=== PATIENT | female | born 1950 | race Caucasian/White ===

== ENCOUNTER 2017-03-31 20:25 | Emergency (ER) | payer OTHER ==
[~2017-03-31] VITALS: Ht 157.5 cm; Wt 79.7 kg
[~2017-03-31 20:25] MED LIST: ALLO300T2 PO; CYAN100020 PO; CZRUNK PO; GLC500 PO; IBUP-1459 PO; LORA-741 PO; SIMV40TA2 PO; VENL150C56 PO
[2017-03-31 20:34] VITALS: TEMP 37.5; Ht 157.5 cm; Wt 79.7 kg
[2017-03-31] MEDS ORDERED: LIDOCAINE/EPINEPH/TETRACAINE 1 EA SYR EXT STA (20:50)
[2017-03-31] MEDS ORDERED: CEFTRIAXONE SOD INJ 1 GM ADDVIAL IV STA (20:50)
--- NOTE | 2017-03-31 20:56 | EMERGENCY ROOM VISIT NOTE ---
History Report prepared by Arden: Jv Gloria Under the Supervision of: Dr. Jay Mora M.D. First contact with patient: 20:40 Chief Complaint: WOUND INFECTION Stated Complaint: ABSCESS OR OPEN AREA INFECTED Nursing Triage Summary: Patient has a quarter sized, "zit like bump" on the back of her neck that she has had for approx. a week. Patient attempted to mackenzie it at home with a needle and now patient's friend is concerned that it's infected as it's been draining yellow fluid. Patient is also a diabetic. History of Present Illness The patient is a 66 year old female who presents to the Emergency Room with complaints of a worsening wound infection on the back of her head for the past week. The patient's friend states that the patient has had an abscess for a week , and tonight she poked it with a needle, and there was some yellow pus. The patient denies any fever, numbness, nausea, vomiting, chest pain, or abdominal pain. The patient additionally is a little bit disoriented, and she is diabetic. Source of History: patient Onset: a week ago Position: head Quality: other (infectoin) Timing: worsening Associated Symptoms: No fevers, No chest pain, No nausea, No vomiting, No abdominal pain, No numbness Review of Systems See HPI for pertinent positives & negatives. A total of 10 systems reviewed and were otherwise negative. Past Medical & Surgical Medical Problems: (1) Calculus Of Kidney (2) Depressive Disorder Nec (3) Diab Trinidad Wo Compl, Type Ii Or Unspec Type, Not Uncntrld (4) Diabetes (5) Hyperlipidemia Nec/Nos (6) Hypertension (7) Hypertension Nos Old medical records were reviewed. Nurse's notes were reviewed and I agree with. Family History Cancer Diabetes mellitus Hypertension Kidney disease Social History Smoking Status: Never Smoker Alcohol Use: none Marital Status: single Housing Status: lives with family Occupation Status: unemployed Current/Historical Medications Scheduled Acetaminophen (Tylenol), 1,000 MG PO DAILY Allopurinol (Zyloprim), 1 TAB PO DAILY Amoxicillin & Pot Clavulanate (Augmentin 875-125 mg), 875 MG PO BID Cyanocobalamin (Vitamin B12), 1,000 MCG PO DAILY Losartan Potassium (Cozaar Unknown Dose), 100 MG PO DAILY Metformin Hcl (Glucophage), 1,000 MG PO BID Mupirocin (Bactroban 2% Oint), 1 APPLN EXT TID Simvastatin (Zocor), 40 MG PO QPM Venlafaxine Hcl (Effexor Extended Rel), 150 MG PO DAILY Scheduled PRN Lorazepam (Ativan), 0.5 MG PO HS PRN for Sleep Allergies Coded Allergies: No Known Allergies (Unverified , 03/31/17) Physical Exam Vital Signs Date Time Temp Pulse Resp B/P (MAP) Pulse Ox O2 Delivery O2 Flow Rate FiO2 03/31/17 22:30 98 17 140/79 94 Room Air 03/31/17 20:34 37.5 97 18 142/91 93 Room Air Physical Exam General: Non-ill appearing older female in no acute distress. HEENT: Posterior scalp near the neck had several pustules. No draining pus at this point. No overt cellulitis. Normal cephalic atraumatic. Pupils are equal round and reactive to light. Extraocular movements are intact. Oropharynx is pink with moist mucous membranes. No swelling of the mouth lips or tongue. Neck: Supple with a midline trachea. No meningeal signs or stiffness, no JVD or bruits. No Stridor. Chest: Clear to auscultation bilaterally. No wheezes or rhonchi. No increased work of breathing. Heart: regular rate and rhythm. Abdomen: Soft nontender, nondistended without rebound guarding or rigidity. Extremities: No cyanosis clubbing or edema. No calf tenderness or assymetry Spine/Back. Non tender to palpation. No CVA tenderness Skin: Good turgor without rashes. Neurologic exam: Cranial nerves two through 12 are intact. Motor and sensation are intact and symmetrical throughout. Medical Decision & Procedures Laboratory Results 03/31/17 21:05 Red Blood Count 3.80, Mean Corpuscular Volume 96.3, Mean Corpuscular Hemoglobin 31.3, Mean Corpuscular Hemoglobin Concent 32.5, Mean Platelet Volume 9.2, Neutrophils (%) (Auto) 72.3, Lymphocytes (%) (Auto) 19.1, Monocytes (%) (Auto) 5.8, Eosinophils (%) (Auto) 2.5, Basophils (%) (Auto) 0.1, Neutrophils # (Auto) 5.81, Lymphocytes # (Auto) 1.54, Monocytes # (Auto) 0.47, Eosinophils # (Auto) 0.20, Basophils # (Auto) 0.01 03/31/17 21:05 Test 03/31/17 20:39 03/31/17 21:05 Bedside Glucose 157 mg/dl (70-90) White Blood Count 8.05 K/uL (4.8-10.8) Red Blood Count 3.80 M/uL (4.2-5.4) Hemoglobin 11.9 g/dL (12.0-16.0) Hematocrit 36.6 % (37-47) Mean Corpuscular Volume 96.3 fL (80-100) Mean Corpuscular Hemoglobin 31.3 pg (25-34) Mean Corpuscular Hemoglobin Concent 32.5 g/dl (32-36) Platelet Count 324 K/uL (130-400) Mean Platelet Volume 9.2 fL (7.4-10.4) Neutrophils (%) (Auto) 72.3 % Lymphocytes (%) (Auto) 19.1 % Monocytes (%) (Auto) 5.8 % Eosinophils (%) (Auto) 2.5 % Basophils (%) (Auto) 0.1 % Neutrophils # (Auto) 5.81 K/uL (1.4-6.5) Lymphocytes # (Auto) 1.54 K/uL (1.2-3.4) Monocytes # (Auto) 0.47 K/uL (0.11-0.59) Eosinophils # (Auto) 0.20 K/uL (0-0.5) Basophils # (Auto) 0.01 K/uL (0-0.2) RDW Standard Deviation 51.6 fL (36.4-46.3) RDW Coefficient of Variation 14.6 % (11.5-14.5) Immature Granulocyte % (Auto) 0.2 % Immature Granulocyte # (Auto) 0.02 K/uL (0.00-0.02) Prothrombin Time 42.1 SECONDS (9.0-12.0) Prothromb Time International Ratio 3.7 (0.9-1.1) Activated Partial Thromboplast Time 41.2 SECONDS (21.0-31.0) Partial Thromboplastin Ratio 1.6 Anion Gap 6.0 mmol/L (3-11) Est Creatinine Clear Calc Drug Dose 29.7 ml/min Estimated GFR () 33.2 Estimated GFR (Non- 28.6 BUN/Creatinine Ratio 10.8 (10-20) Calcium Level 9.1 mg/dl (8.5-10.1) Laboratory studies as stated above per my review. Medications Administered Medications (Trade) Dose Ordered Sig/Georges Route Start Time Stop Time Status Last Admin Dose Admin Ceftriaxone Sodium (Rocephin Inj) 1 gm NOW STAT IV 03/31/17 20:50 03/31/17 20:52 DC 03/31/17 21:29 1 GM Tetracaine/ Epinephrine/ Lidocaine (L.e.t. Gel 4%/ 1:100/0.5%) 1 ea NOW STAT EXT 03/31/17 20:50 03/31/17 20:52 DC 03/31/17 21:29 1 EA ED Course 2039: Past medical records reviewed. The patient was evaluated in room B6, and a complete history and physical examination were performed. 2049: LET Gel 4%/ 1:100/ 0.5% 1ea EXT, Rocephin Inj 1gm IV 2128: After getting numbing cream, I was able to examine her better. There was a large indurated area. The patient states that she is on coumadin. I used an 18 gauge needle to unroof the pustules, and I got some pus out. Medical Decision Differentials include, but are not limited to; abscess, folliculitis, cellulitis , electrolyte or metabolic abnormality. This patient comes in as described above. She has an area in her posterior scalp where she has several small pustules. There may be an abscess there as well. She has tried to pop it at home. Let gel was applied. Blood work was obtained and she was given Rocephin 1 g IV. She was numbed with let gel. She is much easier to examine the area is fairly indurated and in light of this I did do a CT . I did gently unroofed this area a little bit, I did get a small amount of pus. She also tells me that she is on Coumadin which was not listed in her med list and light of this I also did obtain coags. Her INR was elevated at 3.7. CAT scan does not reveal any identifiable abscess but more of a phlegmon. Based on this and the fact that she has an elevated INR, I do think there is nothing to drain at this point but it certainly could develop. She looks well is afebrile is a normal white count. She has some moderate renal insufficiency which is slightly worse than her previous but it's been quite some time. She will use Augmentin 875 mg twice a day. She was also given Bactroban ointment will use this 3 times a day. I chose this because Bactroban because of her INR 3.7 I do not think Bactrim would be a good choice. She does have a folliculitis/cellulitis and I do think he needs close follow- up on Sunday for recheck. I also encouraged to return over the for recheck if: fever chills, worsening of symptoms, any new problems or concerns and to avoid picking at it. Follow up with her doctor Sunday for recheck.. Impression Primary Impression: Cellulitis Additional Impression: Folliculitis Scribe Attestation The scribe's documentation has been prepared under my direction and personally reviewed by me in its entirety. I confirm that the note above accurately reflects all work, treatment, procedures, and medical decision making performed by me. Departure Information Prescriptions Mupirocin (Bactroban 2% Oint) 66 Appln/22 Gm Oint 1 APPLN EXT TID for 10 Days, #1 TUBE Prov: Jay oMra M.D. 03/31/17 Amoxicillin & Pot Clavulanate (Augmentin 875-125 mg) 1 Tab Tab 875 MG PO BID for 10 Days, #20 TAB Prov: Jay Mora M.D. 03/31/17 Referrals No Doctor, Assigned (PCP) Patient Instructions My [facility] Problem Qualifiers
[2017-03-31] MEDS ORDERED: XYLOCAINE 1%/SOD BICARB 20 ML VIAL INFIL ONE (21:00)
[2017-03-31] MEDS ORDERED: ACET-1256 PO (21:02)
[2017-03-31] MEDS ORDERED: METF-384 PO (21:05)
[2017-03-31 21:16] LABS: BASO % 0.1 %; BASO ABS # 0.01 K/uL (0-0.2); COMPLETE YES; EOS % 2.5 %; HEMATOCRIT 36.6 % (37-47); IG% 0.2 %; LYMPH % 19.1 %; LYMPH ABS # 1.54 K/uL (1.2-3.4); MEAN CELL VOLUME 96.3 fL (80-100); MEAN CORPUSCULAR HEMOGLOBIN 31.3 pg (25-34); MEAN CORPUSCULAR HGB CONC 32.5 g/dl (32-36); MEAN PLATELET VOLUME 9.2 fL (7.4-10.4); MONO % 5.8 %; NEUT % 72.3 %; PLATELET COUNT 324 K/uL (130-400); WHITE BLOOD COUNT 8.05 K/uL (4.8-10.8)
[2017-03-31 21:34] LABS: BUN/CREATININE RATIO 10.8 (10-20); CALCIUM 9.1 mg/dl (8.5-10.1); CREATININE 1.8 mg/dl (0.60-1.20); POTASSIUM 3.5 mmol/L (3.5-5.1)
[2017-03-31 22:03] LABS: PARTIAL THROMBOPLASTIN RATIO 1.6; PROTHROMBIN TIME (PATIENT) 42.1 SECONDS (9.0-12.0)
[2017-03-31 22:32] LABS: INR 3.7 (0.9-1.1)
--- NOTE | 2017-03-31 22:54 | DIAGNOSTIC IMAGING REPORT ---
HEAD WITHOUT CONTRAST (CT) CT DOSE: 537.48 mGy.cm HISTORY: Abscess eval for abbess, post scalp TECHNIQUE: Multiaxial CT images of the head were performed without the use of intravenous contrast. Comparison: None. Findings: The paranasal sinuses and mastoid air cells are clear. The calvarium and skull base are intact. The ventricles and sulci are within normal limits. There is no mass, hematoma, midline shift, or acute infarct. Evidence for cellulitis of the posterior occipital scalp. No abnormal periosteal or bony reaction. Possible 1 cm phlegmon within the subcutaneous tissues. No significant drainable abscess. Impression: 1. Negative CT of the brain. 2. Posterior scalp cellulitis with a 1 cm probable phlegmon in the subcutaneous fat 3. No evidence for drainable abscess or collection The above report was generated using voice recognition software. It may contain grammatical, syntax or spelling errors. Electronically signed by: Santino Van M.D. 03/31/2017 10:53 PM Dictated Date/Time: 03/31/2017 10:51 PM
[2017-03-31] MEDS ORDERED: MUPIROCIN 2% OINT 22 GM TUBE EXT STA (23:15)
[2017-03-31] MEDS ORDERED: AMOX875T PO (23:15)
[2017-03-31] MEDS ORDERED: BCTROWC EXT (23:15)
[2017-03-31] MEDS ORDERED: AMOXICIL/CLAVU 875MG HOME PACK PO ONE (23:30)
[2017-03-31 23:40] VITALS: BP 143/79; PULSE 99; O2SAT 97
== END 2017-03-31 23:38 | disposition home or self-care (01) ==
LOC: C.EDB 20:26
DX: L03.811 Cellulitis of head [any part, except face] (principal); L73.9 Follicular disorder, unspecified; E11.9 Type 2 diabetes mellitus without complications; Z87.442 Personal history of urinary calculi; F32.9 Major depressive disorder, single episode, unspecified; E78.5 Hyperlipidemia, unspecified; I10 Essential (primary) hypertension; Z80.9 Family history of malignant neoplasm, unspecified; Z83.3 Family history of diabetes mellitus; Z82.49 Family history of ischemic heart disease and other diseases of the circulatory system; Z84.1 Family history of disorders of kidney and ureter; Z79.899 Other long term (current) drug therapy; Z79.01 Long term (current) use of anticoagulants

== ENCOUNTER 2025-07-29 13:58 | Inpatient (IN) ==
--- NOTE | 2025-07-29 14:08 | Emergency Department Note ---
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 patella. IMPRESSION: No patella fracture seen. ACT 112: Negative or not required by law. Electronically signed by: Joseph Melendez M.D. 07/29/2025 4:03 PM Discharge Plan Visit Data Chief Complaint: Fall Stated Complaint: FALL ED Provider: Lucas Zhu Discharge Problem: Fall, Multiple myeloma, UTI (urinary tract infection), Fracture of right fifth rib, T12 compression fracture Patient Disposition: Admitted As Inpatient Condition: Good Discharge Instructions Interventions: ED Discharge Assessment Last Done: 07/29/25 20:45 Discharge Problem: Fall Qualifiers: Encounter type: initial encounter Qualified Code(s): W19.XXXA - Unspecified fall, initial encounter Multiple myeloma Qualifiers: Multiple myeloma remission status: not in remission Qualified Code(s): C90.00 - Multiple myeloma not having achieved remission UTI (urinary tract infection) Qualifiers: Urinary tract infection type: acute cystitis Hematuria presence: without hematuria Qualified Code(s): N30.00 - Acute cystitis without hematuria T12 compression fracture Qualifiers: Encounter type: initial encounter Qualified Code(s): S22.080A - Wedge compression fracture of T11-T12 vertebra, initial encounter for closed fracture
[2025-07-29] MEDS: OPTIRAY 320 100ml IV ONE (14:49)
[2025-07-29 14:53] LABS: Hematocrit (blood only) 27.7 % (37.0-47.0); Hemoglobin 9.1 g/dL (12.0-16.0); Immature Granulocytes # (auto) 0.01 K/uL (0.01-0.20); Immature Granulocytes % (auto) 0.3 %; Mean Corpuscular Hemoglobin 33.1 pg (25.0-34.0); Mean Corpuscular Volume 100.7 fL (80.0-100.0); Platelet Count 174 K/uL (130-400); RDW Standard Deviation 81.5 fL (36.4-46.3); Red Blood Count 2.75 M/uL (4.20-5.40); White Blood Count 2.96 K/ul (4.8-10.8)
[2025-07-29 15:03] LABS: Appearance Urine Clear (Clear); Bacteria Urine Automated 2+ (None Seen); Epithelial Cell Urine Auto 0-2 /hpf (0-2); Glucose Urine UA Negative (Negative); RBC Urine Automated 0-2 /hpf (0-2)
[2025-07-29] MEDS: ACETAMINOPHEN 1,000 MG/100 ML VIAL IV STA (15:04)
[2025-07-29 15:11] LABS: Alanine Aminotransferase 19.0 U/L (7-52); Albumin Globulin Ratio 0.8 (0.9-2); Albumin Level 3.5 gm/dl (3.4-5.0); Alkaline Phosphatase 137.0 U/L (34-104); Anion Gap 7.0 (3-11); Bilirubin,Total 0.7 mg/dl (0.2-1.0); Blood Urea Nitrogen 47.0 mg/dl (6-23); Calcium 9.6 mg/dl (8.6-10.3); Carbon Dioxide 26.0 mmol/L (21-32); Chloride 104.0 mmol/L (98-107); Creatinine Clr Calc Pharmacy 33.4 ml/min; Globulin 4.6 gm/dl (2.5-4.0); Glucose 164.0 mg/dl (70-99(Fasting)); Lipase 9.0 U/L (11-82); Potassium 4.2 mmol/L (3.5-5.1); Sodium 137.0 mmol/L (136-145); Total Protein 8.1 gm/dl (6.0-8.3)
[2025-07-29 15:22] LABS: Anisocytosis Present; Dohle Bodies 1+; Ovalocytes 1+; Polychromasia 1+
[2025-07-29] MEDS: SODIUM CHLORIDE 0.9% 500 ML IV ONE (15:27)
[2025-07-29] MEDS: LIDOCAINE 5% 1 PATCH TD STA (15:28)
--- NOTE | 2025-07-29 15:29 | CT Scan Report ---
CT SCAN OF THE BRAIN WITHOUT IV CONTRAST CLINICAL HISTORY: Fall. Dizziness. Multiple myeloma. COMPARISON STUDY: Head CT March 31, 2017. TECHNIQUE: Unenhanced axial CT scan of the brain was performed from the vertex to the skull base. A dose lowering technique was utilized adhering to the principles of ALARA. FINDINGS: Brain parenchyma: No acute intracranial hemorrhage, midline shift or mass effect is present. Rhoades-whi te matter differentiation is preserved. There are no extra-axial fluid collections. There are no find ings to suggest acute dural sinus thrombosis or acute territorial infarct. White matter hypodensities suggest small vessel disease. Ventricles, sulci, cisterns: There is no hydrocephalus. The basal cisterns are patent. Calvarium: There are no calvarial fractures. Numerous lytic calvarial lesions are similar to PET/CT o f June 24, 2025. Sinuses and mastoids: The visualized paranasal sinuses are clear. The mastoid air cells are well pneu matized. Orbits: The bony orbits are grossly intact. IMPRESSION: 1. No acute intracranial findings. 2. No calvarial fractures. 3. No significant change in numerous lytic calvarial lesions since PET/CT of June 24, 2025 consiste nt with known history of multiple myeloma. ACT 112: Negative or not required by law. Electronically signed by: [place] M.D. 07/29/2025 3:28 PM
[2025-07-29 15:30] LABS: INR 1.1 (0.9-1.1); Partial Thromboplastin Time 23 Seconds (21-31); Prothrombin Time 11.9 Seconds (9.0-12.0)
--- NOTE | 2025-07-29 15:37 | CT Scan Report ---
CT thoracic spine w con HISTORY: 74 years-old Female trauma acute mid back pain status post trauma. History of multiple myel malou with lytic disease. COMPARISON: CT chest, abdomen and pelvis of same day, PET CT 06/24/2025, CT abdomen and pelvis 05/05/20 25 TECHNIQUE: Multiple axial CT images of the thoracic spine were obtained with IV contrast. A dose lowe ring technique was used consistent with the principals of ALA. FINDINGS: CT chest, abdomen and pelvis dictated separately. Dilation with type B dissection of the descending t horacic aorta redemonstrated. There is no paravertebral edema. Small hypodense thyroid nodules. Parti ally imaged dependent bibasilar consolidation. There is approximately 20% compression deformity of T1 2 without retropulsion, new from 05/05/2025. Small scattered lytic lesions again noted throughout the thoracic spine and imaged ribs. No subluxation. No high-grade central canal or neural foraminal narro wing. Midthoracic dextroscoliosis of approximately 30 degrees. IMPRESSION: 1. Mild acute versus subacute T12 compression deformity without retropulsion, new from 05/05/2025. 2. Small lytic lesions again noted compatible with the patient's clinical history of multiple myeloma . 3. Mid thoracic dextroscoliosis. 4. 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 ACT 112: Negative or not required by law. The above report was generated using voice recognition software. It may contain grammatical, syntax o r spelling errors. Electronically signed by: Geoffrey Fernandes M.D. 07/29/2025 3:34 PM
--- NOTE | 2025-07-29 15:39 | XRay Report ---
XR chest 1V portable CLINICAL HISTORY: Trauma COMPARISON STUDY: 10/05/2015 FINDINGS: There is progressive cardiomegaly without pulmonary vascular congestion. There is opacity a t the left base with blunting of the left costophrenic angle. No other consolidation or pleural effus ion seen. No pneumothorax. There is a rounded density overlying the left upper lung which may be asso ciated with the first rib. There are scattered small osseous lucencies suggesting multiple myeloma. IMPRESSION: 1. Consolidation at the left lung base with possible small left pleural effusion. No pneumothorax see n. 2. Findings suggesting multiple myeloma with possible mass at the left first rib. ACT 112: Negative or not required by law. Electronically signed by: Joseph Melendez M.D. 07/29/2025 3:38 PM
--- NOTE | 2025-07-29 15:41 | CT Scan Report ---
CT SCAN OF THE CERVICAL SPINE CLINICAL HISTORY: Fall. Multiple myeloma. COMPARISON STUDY: PET/CT June 24, 2025. TECHNIQUE: CT scan of the cervical spine is performed from the skull base to the upper thoracic spine . Images are reviewed in the axial, sagittal, and coronal planes. IV contrast was not administered fo r this examination. A dose lowering technique was utilized adhering to the principles of ALARA. FINDINGS: Reversal of the cervical lordosis is unchanged since PET/CT of June 24, 2025. No acute ce rvical spine fractures are identified. Extensive lytic skeletal lesions are again noted, as shown on that exam. Soft tissue lesions within the anterior bilateral first ribs are better depicted on the ch est CT which will be reported separately. There is severe multilevel facet arthrosis and moderate deg enerative disc disease within the cervical spine. Extensive degenerative changes at the C1-C2 articul ation are again noted. There is no prevertebral edema. IMPRESSION: 1. No acute cervical spine fracture or subluxation. 2. Redemonstration of innumerable lytic skeletal lesions consistent with known multiple myeloma, as s hown on PET/CT of June 24, 2025. 3. Severe multilevel facet arthrosis and moderate degenerative disc disease within the cervical spine . ACT 112: Negative or not required by law. Electronically signed by: [place]o [place] M.D. 07/29/2025 3:40 PM
--- NOTE | 2025-07-29 15:46 | CT Scan Report ---
CT lumbar spine w con CLINICAL HISTORY: Trauma COMPARISON STUDY: 05/05/2025 FINDINGS: There is osteopenia. Stable appearance of the osseous structures suggesting multiple myelom a. There is severe diffuse degenerative disc disease, progressive. Stable grade 1 anterolisthesis of L4 on 5. There is mild mildly progressive height loss at the T12 vertebral body. No acute fractures s een at the lumbar spine. There is moderate bilateral neural foraminal narrowing at L4-5 and L5-S1. IMPRESSION: 1. Mild mildly progressive height loss at the T12 vertebral body compared with 05/05/2025. This does n ot have definitely acute features and is indeterminate as to chronicity. 2. No acute fracture seen of the lumbar spine. 3. Appearance of the osseous structures suggests multiple myeloma. ACT 112: Negative or not required by law. Electronically signed by: Joseph Melendez M.D. 07/29/2025 3:44 PM
--- NOTE | 2025-07-29 15:51 | CT Scan Report ---
CHEST CT WITH CONTRAST CT DOSE: 4005 HISTORY: Trauma TECHNIQUE: Multiaxial CT images of the chest were performed following the IV administration of 90 cc of Optiray. A dose lowering technique was utilized adhering to the principles of ALARA. COMPARISON STUDY: 05/05/2025. FINDINGS: There is interval moderate sized area of consolidation at the left lung base. There is an i nterval small area of dependent consolidation right lung base. No pleural effusion or pneumothorax. T here is a stable aortic dissection at the descending thoracic aorta. No mediastinal hematoma. There i s a trace pericardial effusion. There are scattered osseous lucencies with morphology suggesting mult iple myeloma. 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 There is an acute nondisplaced fracture laterally at the right fifth rib. There is an old fracture at the left seventh rib. There is interval minimal height loss at the T12 vertebral body. No other acute fracture seen. IMPRESSION: 1. Acute fracture at the right fifth rib with no pneumothorax. Interval minimal height loss at the T1 2 vertebral body of uncertain chronicity. 2. Interval lung base consolidation, pneumonia versus atelectasis. 3. No other acute injuries seen. 4. Stable descending thoracic aortic dissection. 5. Otherwise as described. ACT 112: Negative or not required by law. Electronically signed by: Joseph Melendez M.D. 07/29/2025 3:50 PM
--- NOTE | 2025-07-29 15:58 | CT Scan Report ---
ABDOMEN AND PELVIS CT WITH IV CONTRAST CT DOSE: 4005.42 mGy.cm HISTORY: Trauma TECHNIQUE: Multiaxial CT images of the abdomen and pelvis were performed following the IV administrat ion of 90 cc of Optiray, A dose lowering technique was utilized adhering to the principles of ALARA. COMPARISON STUDY: 05/05/2025 FINDINGS: ABDOMEN: Gallbladder is surgically absent. There are splenic calcifications consistent with prior gra nulomatous disease. Liver, spleen, pancreas, kidneys, and adrenal glands show no evidence of acute in jury. Stable bilateral renal cysts. No hydronephrosis. The descending aortic dissection continues jus t beyond the hiatus, stable. No evidence of abdominal aortic injury. Pelvis: Stable calcified uterine fibroids. Urinary bladder is decompressed. There is a large amount o f retained stool. No bowel inflammation or obstruction seen. Stable diastases of the rectus. Stable s mall peripherally calcified mass anterior lower pelvis. No free fluid or free air. Osseous structures: There are osseous findings suggesting multiple myeloma. Stable hardware at the pr oximal femurs. Interval minimal height loss at the T12 vertebral body examination of uncertain chroni city. No acute fracture seen at the visualized osseous structures otherwise. IMPRESSION: No acute injury seen at the abdomen or pelvis. Otherwise as described. ACT 112: Negative or not required by law. The above report was generated using voice recognition software. It may contain grammatical, syntax o r spelling errors. Electronically signed by: Joseph Melendez M.D. 07/29/2025 3:57 PM
--- NOTE | 2025-07-29 16:04 | XRay Report ---
XR femur RT 2V routine CLINICAL HISTORY: fall, pain; prior path frx COMPARISON: Right femur radiographs May 12, 2025. FINDINGS: Right femoral internal fixation hardware is intact. There is a healing distal diaphyseal r ight femoral pathologic fracture with extensive callus formation. No acute right femoral fracture is present. Extensive lytic lesions within the right femur are again noted. IMPRESSION: 1. No acute right femoral fracture. 2. Healing distal diaphyseal right femoral pathologic fracture with extensive callus formation. Hardw are intact. 3. Redemonstration of extensive lytic lesions consistent with multiple myeloma. ACT 112: Negative or not required by law. Electronically signed by: [place] M.D. 07/29/2025 4:02 PM
--- NOTE | 2025-07-29 16:04 | XRay Report ---
XR knee RT 1 or 2V routine CLINICAL HISTORY: fall, pain; h/o multiple myelom COMPARISON: None FINDINGS: Single sunrise view of the knee was obtained. No fracture seen at the patella. IMPRESSION: No patella fracture seen. ACT 112: Negative or not required by law. Electronically signed by: Joseph Melendez M.D. 07/29/2025 4:03 PM
--- NOTE | 2025-07-29 16:23 | History & Physical Report ---
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 chest, non tender abd exam, Heart and lung exam fairly wnl. no ble edema. rest of the exam as above. Total time spent independently: 28 min. I have seen and examined the patient and have discussed the case with the provider above. I agree with the assessment and plan as stated.
[2025-07-29] MEDS: cefTRIAXone SODIUM 2,000 MG/50 ML BAG IV STA (16:24)
[2025-07-29] MEDS ORDERED: HYDROmorphone INJ 0.5 MG/0.5 ML SYR IV PRN (17:40)
[2025-07-29] MEDS: SODIUM CHLORIDE 0.9% 1,000 ML IV SCH (18:36)
[2025-07-29] MEDS ORDERED: ACETAMINOPHEN 325 MG TAB PO PRN (21:51)
[2025-07-29] MEDS ORDERED: PROCHLORPERAZINE MALEATE 10 MG TAB PO PRN (21:51)
[2025-07-29] MEDS ORDERED: ONDANSETRON INJ 2 MG/ML 2 ML VIAL IV PRN (21:51)
[2025-07-29] MEDS ORDERED: LORazepam 1 MG TAB PO PRN (21:51)
[2025-07-29] MEDS: ACYCLOVIR 400 MG TAB PO SCH (22:06)
[2025-07-29] MEDS: REMOVE LIDODERM PATCH SCH (22:06)
[2025-07-29] MEDS: APIXABAN 5 MG TABLET PO SCH (22:07)
[2025-07-29] MEDS: CALCIUM CARBONATE 1250MG TAB PO SCH (22:07)
[2025-07-30 06:17] LABS: Hematocrit (blood only) 22.6 % (37.0-47.0); Hemoglobin 7.4 g/dL (12.0-16.0); Immature Granulocytes # (auto) 0.02 K/uL (0.01-0.20); Immature Granulocytes % (auto) 0.9 %; Mean Corpuscular Hemoglobin 33.0 pg (25.0-34.0); Mean Corpuscular Volume 100.9 fL (80.0-100.0); Platelet Count 154 K/uL (130-400); RDW Standard Deviation 82.2 fL (36.4-46.3); Red Blood Count 2.24 M/uL (4.20-5.40); White Blood Count 2.16 K/ul (4.8-10.8)
[2025-07-30 06:40] LABS: Alanine Aminotransferase 14.0 U/L (7-52); Albumin Globulin Ratio 0.8 (0.9-2); Albumin Level 3.2 gm/dl (3.4-5.0); Alkaline Phosphatase 106.0 U/L (34-104); Anion Gap 6.0 (3-11); Bilirubin,Total 0.4 mg/dl (0.2-1.0); Blood Urea Nitrogen 34.0 mg/dl (6-23); Calcium 8.5 mg/dl (8.6-10.3); Carbon Dioxide 25.0 mmol/L (21-32); Chloride 106.0 mmol/L (98-107); Creatinine Clr Calc Pharmacy 38.0 ml/min; Globulin 3.9 gm/dl (2.5-4.0); Glucose 179.0 mg/dl (70-99(Fasting)); Magnesium 1.7 mg/dl (1.7-2.4); Potassium 3.8 mmol/L (3.5-5.1); Sodium 137.0 mmol/L (136-145); Total Protein 7.1 gm/dl (6.0-8.3)
[2025-07-30 06:48] LABS: Anisocytosis Present; Ovalocytes 1+
[2025-07-30 08:24] LABS: Hematocrit (blood only) 23.6 % (37.0-47.0); Hemoglobin 7.8 g/dL (12.0-16.0); Immature Granulocytes # (auto) 0.02 K/uL (0.01-0.20); Immature Granulocytes % (auto) 1.0 %; Mean Corpuscular Hemoglobin 33.1 pg (25.0-34.0); Mean Corpuscular Volume 100.0 fL (80.0-100.0); Platelet Count 150 K/uL (130-400); RDW Standard Deviation 82.2 fL (36.4-46.3); Red Blood Count 2.36 M/uL (4.20-5.40); White Blood Count 1.99 K/ul (4.8-10.8)
[2025-07-30] MEDS: ACETAMINOPHEN 500 MG TAB PO SCH (08:28)
[2025-07-30] MEDS: LORazepam 1 MG TAB PO SCH (08:28)
[2025-07-30] MEDS: ATORVASTATIN 40 MG TAB PO SCH (08:29)
[2025-07-30] MEDS: CITALOPRAM 40 MG TAB PO SCH (08:29)
[2025-07-30] MEDS: CYANOCOBALAMIN (B-12) 500 MCG TABLET PO SCH (08:30)
[2025-07-30] MEDS: FENOFIBRATE NANOCRYSTALLIZED 48 MG TABLET PO SCH (08:36)
[2025-07-30 08:54] LABS: Acanthocytes 1+; Anisocytosis Present; Dohle Bodies 1+; Ovalocytes 1+; Tear Drop Cells 1+; Toxic Vacuolation 1+
--- NOTE | 2025-07-30 09:00 | Radiation OncologyConsultation ---
Date of Consultation July 30, 2025 Assessment & Plan (1) Multiple myeloma: Multiple myeloma remission status: not in remission Qualified Code(s): C90.00 - Multiple myeloma not having achieved remission Plan ATTENDING ADDENDUM Assessment: Ms. Madrid is a 74-year-old female who is currently under treatment for radiation therapy for multiple myeloma. The patient has been admitted due to a fall with rib fractures. We have been asked to evaluate the patient regarding continuing radiation therapy in the inpatient setting. Plan: 1. Continue radiation therapy in the inpatient setting. The case was discussed with the midlevel provider. 2. All other care as per primary medical team. 3. Please call us with any further questions or concerns. History of Present Illness Reason for Consultation: Currently undergoing radiation therapy to the bilateral femurs for multiple my eloma Requesting Physician: Clifford York MD Attending Physician: Clifford York MD History of Present Illness 04/30/2025. Primary care visit. Burning pain in right leg when walking. Studies were ordered. Started gabapentin. 05/04/2025. Skeletal survey. Extensive osseous metastatic disease consistent with multiple myeloma. 05/04/2025. Patient was hospitalized due to elevated blood protein and abnormal femur x-ray. Workup for plasma cell dyscrasia was started. Patient will need PET/CT. 05/04/2025. CT of the chest, abdomen and pelvis. 1. There is evidence of extensive/diffuse multifocal osteolytic bony metastatic disease. The appearance favors multiple myeloma. 2. There are lobular soft tissue lesions associated with bilateral first rib lesions which may represent plasmacytomas. 3. Subacute-appearing bilateral rib fractures may be pathologic. No additional pathologic fracture is clearly seen. 4. 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 05/04/2025. X-ray of right femur. Mixed lytic and sclerotic expansile lesion involving the entire right femoral diaphysis extending from the greater trochanter to the distal diaphysis of the femoral diaphysis. There are erosive changes and expansion of the cortex distally differential diagnostic. Possibilities include multiple myeloma versus metastatic disease. 05/04/2025. CT of right femur. 1. Innumerable lytic lesions within the right femur and visualized portions of the right pelvis suggestive of multiple myeloma. Metastatic disease is within the differential but considered less likely. 2. Associated 7.1 x 3.8 x 2.9 cm enhancing intramedullary lesion within the distal diaphysis of the right femur with soft tissue extension and extensive cortical erosion also suggestive of myeloma. No pathologic fracture. However, this lesion places the patient at risk for development of a pathologic fracture. 05/04/2025. X-ray of right tibia and fibula. No acute osseous pathology. 05/05/2025. Medical oncology consultation (Dr. Powers). Workup for plasma cell dyscrasia. Complete bone marrow. 05/06/2025. Bone marrow biopsy peripheral blood. Peripheral blood, bone marrow aspiration, core biopsy and clot section: Monoclonal plasma cell population (10%) Mildly hypercellular marrow for age (50%) and trilineage hematopoiesis Karyotype: Del 6 q. and hyperdiplody. 05/07/2025. Hospital discharge. Complete workup as outpatient. 05/12/2025. Emergency room evaluation due to pain in the right leg. 2 sisters were helping her to get out of the bathtub whenever she felt a pop in her right lower thigh region. She was brought to the emergency room. 05/12/2025. X-ray of right femur. Moderately displaced pathologic fracture of the distal femoral shaft with foreshortening and angulation. 05/13/2025. CT of lower extremity right. 1. Displaced pathologic distal right femur metaphysis fracture. 2. Diffuse infiltrative bony lesion involving the femur, iliac crest, and sacrum compatible with metastatic disease. 05/13/2025. X-ray of right femur. 1. Infiltrative bony lesion is present compatible with metastatic disease. There is pathologic fracture acrossthe distal metaphyses which is displaced posteriorly by half a with of the cortical bone. 2. Calcified pelvic lesion measures 9.8 by 6.3 cm. Another calcified lesion measures 5.1 by 6.2 cm. This Could reason for present uterine fibroids. 05/13/2025. X-ray bilateral hips. 1. Infiltrative bony lesion is present compatible with metastatic disease. There is pathologic fracture acrossthe distal metaphyses which is displaced posteriorly by half a with of the cortical bone. 2. Calcified pelvic lesion measures 9.8 by 6.3 cm. Another calcified lesion measures 5.1 by 6.2 cm. This could resent uterine fibroids. 05/13/2025. Open reduction internal fixation of the right femur (Dr. Etienne). Pathology report reveals: A. Bone, Femur, Right, Right intramedullary tumor of femur, biopsy: Monoclonal plasma cell neoplasm, kappa light chain restricted (see comment) Comment: The findings are consistent with multiple myeloma in the proper clinical and radiographic context. The preliminary findings favoring clonal plasma cell neoplasm/multiple myeloma were reported to Dr. Go Guzman on May 15, 2025 at 4:01 PM via tiger text with confirmation that the message was received and read. 05/13/2025. Surgery for right pathologic fracture of the distal femur. 1. Retrograde femoral nail for open treatment right pathologic distal 1/3 femoral shaft fracture insetting of multiple myeloma 2. Open bone biopsy of right femur intramedullary canal 3. Prophylactic fixation right proximal femur with dynamic hip screw above retrograde nail 05/13/2025. X-ray of right femur. 1. ORIF right femoral fracture. 2. Permeative appearance of the bone, which may be seen in metastatic disease or multiple myeloma. 05/13/2025. X-ray of tibia and fibula 1. Infiltrative bony lesion is present compatible with metastatic disease. There is pathologic fracture acrossthe distal metaphyses which is displaced posteriorly by half a with of the cortical bone. 2. Calcified pelvic lesion measures 9.8 by 6.3 cm. Another calcified lesion measures 5.1 by 6.2 cm. This could represent uterine fibroid. 05/19/2025. Prophylactic stabilization of left femur. Dr. Etienne. 06/15/2025. Initiation of systemic therapy. [place]. Dr. Tolliver. 06/18/2025. Orthopedic oncology follow-up. Dr. Etienne. Recommend postoperative radiation therapy to bilateral femurs. 06/29/2025. Medical oncology follow-up. Dr. Tolliver. Radiation oncology referral. Continue with systemic therapy. 07/08/2025. Radiation oncology consultation. Patient does have discomfort involving her lower back. Plan for postoperative radiation therapy to bilateral femurs and consideration of palliative radiation therapy to the lower pelvis. 07/27/2025 and 07/28/2025. Patient received 2 fractions of radiation therapy. Plan for 10 fractions. 07/29/2025. Patient fell. She missed while transferring into the wheelchair. Following this she had significant pain in her back and ribs. She was brought to the emergency room for evaluation. 07/29/2025. Chest x-ray. 1. Consolidation at the left lung base with possible small left pleural effusion. No pneumothorax seen. 2. Findings suggesting multiple myeloma with possible mass at the left first rib. 07/29/2025. CT of the lumbar spine. MPRESSION: 1. Mild mildly progressive height loss at the T12 vertebral body compared with 05/05/2025. This does not have definitely acute features and is indeterminate as to chronicity. 2. No acute fracture seen of the lumbar spine. 3. Appearance of the osseous structures suggests multiple myeloma. 07/29/2025. CT of thoracic spine. 1. Mild acute versus subacute T12 compression deformity without retropulsion, new from 05/05/2025. 2. Small lytic lesions again noted compatible with the patient's clinical history of multiple myeloma. 3. Mid thoracic dextroscoliosis. 4. 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 07/29/2025. CT of the abdomen pelvis. No acute injury seen in the abdomen or pelvis. 07/29/2025. CT of the cervical spine. No acute cervical spine fracture. Innumerable skeletal lesions consistent with known multiple myeloma. Several multilevel facet arthrosis and moderate degenerative disc disease within the cervical spine. 07/29/2025. Chest CT. 1. Acute fracture at the right fifth rib with no pneumothorax. Interval minimal height loss at the T12 vertebral body of uncertain chronicity. 2. Interval lung base consolidation, pneumonia versus atelectasis. 3. No other acute injuries seen. 4. Stable descending thoracic aortic dissection. 5. Otherwise as described. 07/29/2025. CT of the head. No acute intracranial findings. No calvarial fractures. No significant change in numerous lytic calvarial lesions since PET/CT of 06/24/2025. Consistent with known history of multiple myeloma. 07/29/2025. X-ray right femur. 1. No acute right femoral fracture. 2. Healing distal diaphyseal right femoral pathologic fracture with extensive callus formation. Hardware intact. 3. Redemonstration of extensive lytic lesions consistent with multiple myeloma. 07/29/2025. X-ray of right knee. No patellar fracture seen. 07/30/2025. Radiation oncology consultation. Patient is currently undergoing radiation therapy for multiple myeloma. Receiving radiation therapy to both femurs. She has received 2 fractions of therapy. She does have issues with claustrophobia and was taking the lorazepam 1 mg prior to each treatment. She unfortunately fell yesterday and sustained injuries. Fracture of ribs and T12 showed further compression. He does have pain especially in her ribs. She has a pain level of 6 out of 10. Pain medication that she is receiving as an inpatient is helpful. Our office was consulted and updated of her admission. Allergies Allergy/AdvReac Type Severity Reaction Status Date / Time No Known Allergies Allergy Verified 07/29/25 16:52 Home Medications Medication Instructions Recorded Confirmed Type amlodipine 10 mg tablet 10 mg PO QAM 05/08/23 07/29/25 History atorvastatin 80 mg tablet 80 mg PO QAM 05/08/23 07/29/25 History dulaglutide 3 mg/0.5 mL 3 mg subcut WK 05/08/23 07/29/25 History subcutaneous pen injector (Trulicity) fenofibrate micronized 67 mg 67 mg PO QAM 05/08/23 07/29/25 History capsule lisinopril 2.5 mg tablet 2.5 mg PO QAM 05/08/23 07/29/25 History apixaban 5 mg tablet (Eliquis) 5 mg PO BID 05/04/25 07/29/25 History allopurinol 300 mg tablet 300 mg PO QAM #30 tabs 05/07/25 07/29/25 Rx cyanocobalamin (vitamin B-12) 500 500 mcg PO DAILY #30 tabs 05/07/25 07/29/25 Rx mcg tablet citalopram 40 mg tablet 40 mg PO QAM 07/08/25 07/29/25 History linaclotide 290 mcg capsule 290 mcg PO DAILY 07/08/25 07/29/25 History (Linzess) oxycodone 5 mg tablet 5 mg PO .Q4-6HR PRN bone pain 07/08/25 07/29/25 History lorazepam 1 mg tablet 1 mg PO DAILY #10 tabs 07/23/25 07/29/25 Rx acyclovir 400 mg tablet 400 mg PO BID 07/29/25 07/29/25 History calcium carbonate 500 mg PO BID 07/29/25 07/29/25 History dexamethasone 4 mg tablet 20 mg PO DIRECTED 07/29/25 07/29/25 History lenalidomide 25 mg capsule 25 mg PO DIRECTED 07/29/25 07/29/25 History lorazepam 1 mg tablet 1 mg PO DIRECTED PRN PRIOR TO 07/29/25 07/29/25 History RADIATION RX ondansetron 8 mg disintegrating 8 mg translingual Q8H PRN 07/29/25 07/29/25 History tablet NAUSEA/VOMITING prochlorperazine maleate 10 mg 10 mg PO Q6H PRN NAUSEA/VOMITING 07/29/25 07/29/25 History tablet Patient History Medical History Osteoarthritis Urinary incontinence DM type 2 (diabetes mellitus, type 2) Depression Anxiety HLD (hyperlipidemia) [place] (hard of hearing) Left VALERIO Chronic thoracic aortic dissection Surgical History History of heart surgery "She had a tear in her heart fixed." -- per pt's sister. Pt follows with Dr. Duarte. History of cholecystectomy History of right cataract surgery History of colonoscopy Family History Sister Cancer cervical/gynecological cancer Mother Cancer Pancreatic Diabetes Father Cancer Lung Sister Cancer Breast cancer Other Family history non-contributory Social History Smoking Status: Former smoker Cigarettes Per Day: 1-2 per day, has not smoked for 40 yrs; Second Hand Exposure: No; Do You Dip or Chew Tobacco: No; Hx Alcohol Use: No Hx Substance Use: No Preferred Language: Danish Communication Ability: Effective Tube Mill Operator Required: No Beliefs That Will Affect Care: None marital status: Single Current Living Situation: Family Current Living Situation Comment: lives with adult child current occupational status: disabled Other Information That Helps Us Care for You: No Feels Safe at Home: Yes Safety Concerns: Feels Safe At This Time Diet: regular Assistive Devices: Bedside Commode, Denture - Upper, Denture - Lower, Glasses, Hearing Aid - Bilateral, Hospital Bed, Raised Toilet Seat and Walker Radiation History Diagnosis: Multiple myeloma. Pathologic fracture of right distal femur. Treatment: 05/13/2025. Open reduction internal fixation of pathologic fracture of right femur. Dr. Etienne 05/19/2025. Prophylactic stabilization of left femur. Dr. Etienne. 06/15/2025. [facility]. Dr. Tolliver. 07/27/2025 and 07/28/2025. Patient received 2 fractions of radiation therapy. Plan for 10 fractions. Review of Systems Review of Systems: 13 point review of systems completed and is negative other than was mentioned in the history of present illness. Physical Exam Constitutional: WD/WN, vitals as above Eyes: PERRL, conjunctivae normal, anicteric sclerae ENMT: Ears: no hearing impairment Neck: trachea midline, no thyromegaly Respiratory: normal respiratory effort, lungs clear to auscultation Cardiovascular: RRR, no murmur, no edema Chest (Breasts): Additional Comments: Tenderness of the left anterior ribs. Pain with inspiration. Gastrointestinal (Abdomen): normal bowel sounds, soft, nontender, no hepatosplenomegaly Musculoskeletal: Tenderness of paraspinous musculature in the thoracic spine region. Skin: no rashes, warm and dry Psychiatric: A+Ox3, euthymic affect Results (Rad Onc) Imaging Studies: were reviewed and pertinent findings noted in HPI Time Spent Midlevel I spent [20] minutes in preparation for this follow up evaluation including reviewing all the clinical records, reviewing laboratory studies, pathology reports and imaging results. I spent [20] minutes with direct face to face interaction with the patient and/or family including performing a physical exam and answering all questions. I spent [15] minutes documenting this patient's visit. PG Care Time/CCT Total # of Minutes Spent Total Time Spent with Patient: Total time spent is greater than 50% in coordination of care (as documented) at patient's floor/unit and/or counseling patient: Coding Level of Care Code 39472 INT INP/OBS CARE 2/55MIN Diagnoses Multiple myeloma C90.00 Multiple myeloma remission status: not in remission
--- NOTE | 2025-07-30 10:28 | Orthopedic Consultation ---
Date of Consultation July 30, 2025 Assessment & Plan (1) T12 compression fracture: At this time the compression fracture noted on CAT scan is most likely old and well-healed. There is no spine intervention at this point. History of Present Illness Reason for Consultation: T12 compression fracture Attending Physician: Clifford York MD History of Present Illness This a very pleasant 74-year-old female admitted with multiple medical issues. Upon imaging there is a questionable T12 compression fracture. At this point she is sitting up at the bedside working with physical therapy. She denies any back pain. Allergies Allergy/AdvReac Type Severity Reaction Status Date / Time No Known Allergies Allergy Verified 07/29/25 16:52 Home Medications Medication Instructions Recorded Confirmed Type amlodipine 10 mg tablet 10 mg PO QAM 05/08/23 07/29/25 History atorvastatin 80 mg tablet 80 mg PO QAM 05/08/23 07/29/25 History dulaglutide 3 mg/0.5 mL 3 mg subcut WK 05/08/23 07/29/25 History subcutaneous pen injector (Trulicity) fenofibrate micronized 67 mg 67 mg PO QAM 05/08/23 07/29/25 History capsule lisinopril 2.5 mg tablet 2.5 mg PO QAM 05/08/23 07/29/25 History apixaban 5 mg tablet (Eliquis) 5 mg PO BID 05/04/25 07/29/25 History allopurinol 300 mg tablet 300 mg PO QAM #30 tabs 05/07/25 07/29/25 Rx cyanocobalamin (vitamin B-12) 500 500 mcg PO DAILY #30 tabs 05/07/25 07/29/25 Rx mcg tablet citalopram 40 mg tablet 40 mg PO QAM 07/08/25 07/29/25 History linaclotide 290 mcg capsule 290 mcg PO DAILY 07/08/25 07/29/25 History (Linzess) oxycodone 5 mg tablet 5 mg PO .Q4-6HR PRN bone pain 07/08/25 07/29/25 History lorazepam 1 mg tablet 1 mg PO DAILY #10 tabs 07/23/25 07/29/25 Rx acyclovir 400 mg tablet 400 mg PO BID 07/29/25 07/29/25 History calcium carbonate 500 mg PO BID 07/29/25 07/29/25 History dexamethasone 4 mg tablet 20 mg PO DIRECTED 07/29/25 07/29/25 History lenalidomide 25 mg capsule 25 mg PO DIRECTED 07/29/25 07/29/25 History lorazepam 1 mg tablet 1 mg PO DIRECTED PRN PRIOR TO 07/29/25 07/29/25 History RADIATION RX ondansetron 8 mg disintegrating 8 mg translingual Q8H PRN 07/29/25 07/29/25 History tablet NAUSEA/VOMITING prochlorperazine maleate 10 mg 10 mg PO Q6H PRN NAUSEA/VOMITING 07/29/25 07/29/25 History tablet Patient History Medical History Osteoarthritis Urinary incontinence DM type 2 (diabetes mellitus, type 2) Depression Anxiety HLD (hyperlipidemia) [place] (hard of hearing) Left [place] Chronic thoracic aortic dissection Surgical History History of heart surgery "She had a tear in her heart fixed." -- per pt's sister. Pt follows with Dr. Duarte. History of cholecystectomy History of right cataract surgery History of colonoscopy Family History Sister Cancer cervical/gynecological cancer Mother Cancer Pancreatic Diabetes Father Cancer Lung Sister Cancer Breast cancer Other Family history non-contributory Social History Smoking Status: Former smoker Cigarettes Per Day: 1-2 per day, has not smoked for 40 yrs; Second Hand Exposure: No; Do You Dip or Chew Tobacco: No; Hx Alcohol Use: No Hx Substance Use: No Preferred Language: Vietnamese Communication Ability: Effective Harness Racing Handicapper Required: No Beliefs That Will Affect Care: None marital status: Single Current Living Situation: Family Current Living Situation Comment: lives with adult child current occupational status: disabled Other Information That Helps Us Care for You: No Feels Safe at Home: Yes Safety Concerns: Feels Safe At This Time Diet: regular Assistive Devices: Denture - Upper, Glasses, Hearing Aid - Bilateral, Walker and Wheelchair Physical Exam Physical Exam: On exam patient has no pain to palpation or percussion of the thoracolumbar spine. Results & Data Vital Signs (Past 12 Hours) Vital Signs Temp Pulse Resp BP Pulse Ox O2 Del Method 07/30/25 08:00 37.4 C 79 18 114/68 96 Room Air (1) T12 compression fracture Encounter type: initial encounter Qualified Code(s): S22.080A - Wedge compression fracture of T11-T12 vertebra, initial encounter for closed fracture
--- NOTE | 2025-07-30 12:39 | Hospitalist Progress Note ---
Date of Service July 30, 2025 Assessment & Plan (1) Multiple myeloma: (2) At high risk of tumor lysis syndrome: (3) Diabetes: (4) Hypertension: (5) UTI (urinary tract infection): (6) Fall: (7) Fracture of right fifth rib: (8) T12 compression fracture: Plan per admitting service notes with addendum: Fall Fracture of the right fifth rib T12 compression fracture - admit to [facility] - pain control, lidocaine patch, oxycodone 5 mg Q4-6H prn already rx as outpatient, may need to increase here, Dilaudid IV as needed for severe/breakthrough pain, incentive spirometry, flutter to prevent pneumonia , CXR is possible for such however the pt does not have any respiratory symptoms. Unlikely that this is truely a pna, however ceftriaxone would also cover this - PT/OT consults - Consult ortho spine to eval the T12 fracture 04/29 pain well controlled add Tylenol 1g q12h, decrease Oxycodone- reserve only for severe pain Incentive Spirometry Ortho Spine: T12 fracture is chronic UTI - UA appears grossly infected, Follow Ucx, started ceftriaxone, continue - Monitor confusion, aspiration precautions 04/29 urine culture pending IV Ceftriaxone Diarrhea - Check stool culture, c diff - NS at 80ml/hr x 1 L, - Unsure if this is infectious vs adverse effect from chemo? 04/29 resolving awaiting stool studies Multiple myeloma with multiple bone lesions on imaging - S/p bone marrow biopsy on 05/05/25 - Multiple lytic lesions - Current therapy: Jenna-VRD Cycle 1 started 06/15/25 (daratumumabm bortezomib, dexamethasone, lenalidomide) - Cycle 3 to be administered on Friday 08/03 - she is supposed to take dexamethasone as directed 3 days prior to chemotherapy, which would start Sunday. Day team to reach out to heme/onc regarding if pt to have cycle 3 on s chedule or if this will be postponed. - Prophylaxis includes allopurinol, acyclovir - S/p stabilization of the right femur due to a pathological fracture ( 05/13/25) as well as a prophylactic stabilization of her left femur ( 05/19/25) for impending pathological fracture by Dr. Etienne in April and May 2025 at [facility]. 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 Kathi Mao, will consult their team to continue while she is in the hospital. 04/29 continue Radiation therapy Stable descending aortic dissection -CT abd pelvis 07/29/25- reviewed personally --The descending aortic dissection continues just beyond the hiatus, stable. No evidence of abdominal aortic injury. This has been present since at least Sep 2024. DM II - ISS with accuchecks Hailey ledezma weekly - A1C with am labs CKD stage IIIb -follow am labs, Cr./BUN 1.41/47, will give NS 80 ml/hr x 1 bag for hydration as she appears dry Other chronic medical conditions: Anxiety Depression Panic Attacks - Stable, continue home medications including citalopram daily DVT ppx: teds, scds, eliquis 5 mg BID Lines: PIV x 1 FEN/GI: heart healthy CODE: DNR/DNI-discussed with the patient, her 2 sisters and son who are present at bedside. They have not met with palliative care provider previously, have not truly discussed goals of care, encouraged them to do so whenever Marika is more oriented. Would highly consider involving palliative care during hospital stay. Dispo: admit to med/surg lives at home with family, PT/OT evaluation Admission and Anticipated Discharge Date Admission Date: July 29, 2025 Subjective seen resting in bed, comfortable pleasantly confused rib pain well controlled denies back pain was having cough overnight per RN denies shortness of breath, on 2 L denies urinary symptoms no fever/chills no other new symptoms Review of Systems Review of Systems: all noted and negative except for above Physical Exam Physical Exam: General- oriented x 3, not in distress, speaks in sentences with no effort or accessory muscle use Eyes- anicteric Neck- no JVD Lungs- mild rales at the bases no wheezing Heart- normal rate, regular rhythm; no murmurs Abdomen- normal bowel sounds, nondistended, soft, nontender Extremities- no pretibial edema, no calf tenderness Neuro- alert, oriented x 0-1; no gross focal neurologic deficits Skin- warm & dry Results & Data Results & Data Vital Signs (Past 12 Hours) Vital Signs Temp Pulse Resp BP Pulse Ox O2 Del Method 11/13/25 08:25 Room Air 07/30/25 08:00 37.4 C 79 18 114/68 96 Room Air all noted and reviewed including below (1) Multiple myeloma Multiple myeloma remission status: not in remission Qualified Code(s): C90.00 - Multiple myeloma not having achieved remission (5) UTI (urinary tract infection) Hematuria presence: without hematuria Urinary tract infection type: acute cystitis Qualified Code(s): N30.00 - Acute cystitis without hematuria (6) Fall Encounter type: initial encounter Qualified Code(s): W19.XXXA - Unspecified fall, initial encounter (8) T12 compression fracture Encounter type: initial encounter Qualified Code(s): S22.080A - Wedge compression fracture of T11-T12 vertebra, initial encounter for closed fracture
[2025-07-30] MEDS: DOXYCYCLINE HYCLATE 100 MG CAP PO SCH (13:23)
[2025-07-30] MEDS: ADVANCED PROBIOTIC 625 MG CAPSULE PO SCH (13:23)
[2025-07-30] MEDS: ACETAMINOPHEN 500 MG TAB PO STA (14:43)
[2025-07-30] MEDS: cefTRIAXone SODIUM 2,000 MG/50 ML BAG IV SCH (16:30)
[2025-07-31 06:43] LABS: Hematocrit (blood only) 25.1 % (37.0-47.0); Hemoglobin 8.2 g/dL (12.0-16.0); Immature Granulocytes # (auto) 0.01 K/uL (0.01-0.20); Immature Granulocytes % (auto) 0.6 %; Mean Corpuscular Hemoglobin 32.8 pg (25.0-34.0); Mean Corpuscular Volume 100.4 fL (80.0-100.0); Platelet Count 156 K/uL (130-400); RDW Standard Deviation 81.3 fL (36.4-46.3); Red Blood Count 2.50 M/uL (4.20-5.40); White Blood Count 1.73 K/ul (4.8-10.8)
[2025-07-31 07:10] LABS: Alanine Aminotransferase 15.0 U/L (7-52); Albumin Globulin Ratio 0.9 (0.9-2); Albumin Level 3.3 gm/dl (3.4-5.0); Alkaline Phosphatase 96.0 U/L (34-104); Anion Gap 6.0 (3-11); Bilirubin,Total 0.5 mg/dl (0.2-1.0); Blood Urea Nitrogen 25.0 mg/dl (6-23); Calcium 9.1 mg/dl (8.6-10.3); Carbon Dioxide 27.0 mmol/L (21-32); Chloride 103.0 mmol/L (98-107); Creatinine Clr Calc Pharmacy 38.0 ml/min; Globulin 3.6 gm/dl (2.5-4.0); Glucose 144.0 mg/dl (70-99(Fasting)); Potassium 4.0 mmol/L (3.5-5.1); Sodium 136.0 mmol/L (136-145); Total Protein 6.9 gm/dl (6.0-8.3)
[2025-07-31 07:21] LABS: Acanthocytes 1+; Anisocytosis Present; Dohle Bodies 1+
--- NOTE | 2025-07-31 09:25 | Electrocardiogram Report ---
Test Reason : Blood Pressure : */* mmHG Vent. Rate : 81 BPM Atrial Rate : 81 BPM P-R Int : 184 ms QRS Dur : 92 ms QT Int : 340 ms P-R-T Axes : 106 -46 41 degrees QTcB Int : 395 ms Normal sinus rhythm Pulmonary disease pattern Left anterior fascicular block Abnormal ECG When compared with ECG of 04-May-2025 17:35, HR has increased No significant change Confirmed by Jean Lopez ([id number]) on 07/31/2025 9:24:45 AM Referred By: REFERRED SELF Confirmed By: Jean Lopez
[2025-07-31] MEDS ORDERED: LORazepam 0.5 MG TAB PO PRN (11:31)
[2025-07-31] MEDS: LORazepam 0.5 MG TAB PO PRN (13:50)
--- NOTE | 2025-07-31 15:13 | Hospitalist Progress Note ---
Date of Service July 31, 2025 Assessment & Plan (1) Multiple myeloma: (2) At high risk of tumor lysis syndrome: (3) Diabetes: (4) Hypertension: (5) UTI (urinary tract infection): (6) Fall: (7) Fracture of right fifth rib: (8) T12 compression fracture: Plan per admitting service notes with addendum: Fall Fracture of the right fifth rib T12 compression fracture - admit to [facility] - pain control, lidocaine patch, oxycodone 5 mg Q4-6H prn already rx as outpatient, may need to increase here, Dilaudid IV as needed for severe/breakthrough pain, incentive spirometry, flutter to prevent pneumonia , CXR is possible for such however the pt does not have any respiratory symptoms. Unlikely that this is truely a pna, however ceftriaxone would also cover this - PT/OT consults - Consult ortho spine to eval the T12 fracture 07/30 pain well controlled add Tylenol 1g q12h, decrease Oxycodone- reserve only for severe pain Incentive Spirometry Ortho Spine: T12 fracture is chronic 07/31 Pain well-controlled Bilateral pneumonia improving with ceftriaxone and doxycycline Continue for now Speech therapy evaluation to rule out aspiration component UTI - UA appears grossly infected, Follow Ucx, started ceftriaxone, continue - Monitor confusion, aspiration precautions 07/31 Urine culture: Positive for E. coli, Resistant to ampicillin, Bactrim, tobramycin and gentamicin Continue IV ceftriaxone urine culture pending IV Ceftriaxone Diarrhea - Check stool culture, c diff - NS at 80ml/hr x 1 L, - Unsure if this is infectious vs adverse effect from chemo? 07/31 resolved Multiple myeloma with multiple bone lesions on imaging - S/p bone marrow biopsy on 05/05/25 - Multiple lytic lesions - Current therapy: Jenna-VRD Cycle 1 started 06/15/25 (daratumumabm bortezomib, dexamethasone, lenalidomide) - Cycle 3 to be administered on Friday 08/03 - she is supposed to take dexamethasone as directed 3 days prior to chemotherapy, which would start Sunday. Day team to reach out to heme/onc regarding if pt to have cycle 3 on schedule or if this will be postponed. - Prophylaxis includes allopurinol, acyclovir - S/p stabilization of the right femur due to a pathological fracture ( 05/13/25) as well as a prophylactic stabilization of her left femur ( 05/19/25) for impending pathological fracture by Dr. Etienne in April and May 2025 at [facility]. 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 Kathi Mao, will consult their team to continue while she is in the hospital. 07/30 continue Radiation therapy Stable descending aortic dissection -CT abd pelvis 07/29/25- reviewed personally --The descending aortic dissection continues just beyond the hiatus, stable. No evidence of abdominal aortic injury. This has been present since at least Sep 2024. DM II - ISS with accuchecks achsBartulicyocasta weekly - A1C with am labs CKD stage IIIb -follow am labs, Cr./BUN 1.41/47, will give NS 80 ml/hr x 1 bag for hydration as she appears dry Other chronic medical conditions: Anxiety Depression Panic Attacks - Stable, continue home medications including citalopram daily DVT ppx: teds, scds, eliquis 5 mg BID Lines: PIV x 1 FEN/GI: heart healthy CODE: DNR/DNI-discussed with the patient, her 2 sisters and son who are present at bedside. They have not met with palliative care provider previously, have not truly discussed goals of care, encouraged them to do so whenever Marika is more oriented. Would highly consider involving palliative care during hospital stay. Dispo: admit to med/surg lives at home with family anticipate discharge to home tomorrow plan of care discussed with patient and sisters Rhianna and Carolin in detail and at length all questions answered they are understanding, agreeable, comfortable with the plan of care Admission and Anticipated Discharge Date Admission Date: July 29, 2025 Subjective Seen resting in bed side chair, having lunch, in good spirits Alert, oriented x 1-2, answering most questions appropriately Patient's sister is at the bedside visiting States she feels better today Rib pain improving, denies back pain States breathing also improving, denies cough, shortness of breath, fevers or chills No other new symptoms Patient sisters states patient looks much better, confusion has resolved, back to baseline mental status, seems to have more energy today than at home Review of Systems Review of Systems: all noted and negative except for above Physical Exam Physical Exam: General- oriented x 2, not in distress, speaks in sentences with no effort or accessory muscle use Eyes- anicteric Neck- no JVD Lungs- clear breath sounds bilaterally, no rales/wheezes Heart- normal rate, regular rhythm; no murmurs Abdomen- normal bowel sounds, nondistended, soft, nontender Extremities- no pretibial edema, no calf tenderness Neuro- alert, oriented x 2; no gross focal neurologic deficits Skin- warm & dry Results & Data Results & Data Vital Signs (Past 12 Hours) Vital Signs Temp Pulse Resp BP Pulse Ox O2 Del Method 07/31/25 07:38 37 C 78 18 137/85 92 Room Air 07/31/25 07:34 Room Air all noted and reviewed including below (1) Multiple myeloma Multiple myeloma remission status: not in remission Qualified Code(s): C90.00 - Multiple myeloma not having achieved remission (5) UTI (urinary tract infection) Hematuria presence: without hematuria Urinary tract infection type: acute cystitis Qualified Code(s): N30.00 - Acute cystitis without hematuria (6) Fall Encounter type: initial encounter Qualified Code(s): W19.XXXA - Unspecified fall, initial encounter (8) T12 compression fracture Encounter type: initial encounter Qualified Code(s): S22.080A - Wedge compression fracture of T11-T12 vertebra, initial encounter for closed fracture
[2025-08-01] MEDS ORDERED: POLYETHYLENE (MIRALAX) 17 GM PACK PO PRN (00:44)
[2025-08-01] MEDS: DOCUSATE SODIUM/SENNA 50/8.6MG TAB PO SCH (01:03)
[2025-08-01 08:37] VITALS: BP 115/71; PULSE 74; RESP 18; TEMP 98.1; O2SAT 95
--- NOTE | 2025-08-01 11:11 | Hospitalist Progress Note ---
Date of Service August 01, 2025 Assessment & Plan (1) Multiple myeloma: (2) At high risk of tumor lysis syndrome: (3) Diabetes: (4) Hypertension: (5) UTI (urinary tract infection): (6) Fall: (7) Fracture of right fifth rib: (8) T12 compression fracture: Plan per admitting service notes with addendum: Fall Fracture of the right fifth rib T12 compression fracture - admit to [facility] - pain control, lidocaine patch, oxycodone 5 mg Q4-6H prn already rx as outpatient, may need to increase here, Dilaudid IV as needed for severe/breakthrough pain, incentive spirometry, flutter to prevent pneumonia , CXR is possible for such however the pt does not have any respiratory symptoms. Unlikely that this is truely a pna, however ceftriaxone would also cover this - PT/OT consults - Consult ortho spine to eval the T12 fracture 07/30 pain well controlled add Tylenol 1g q12h, decrease Oxycodone- reserve only for severe pain Incentive Spirometry Ortho Spine: T12 fracture is chronic 07/31 Pain well-controlled Bilateral pneumonia improving with ceftriaxone and doxycycline Continue for now Speech therapy evaluation to rule out aspiration component UTI - UA appears grossly infected, Follow Ucx, started ceftriaxone, continue - Monitor confusion, aspiration precautions 07/31 Urine culture: Positive for E. coli, Resistant to ampicillin, Bactrim, tobramycin and gentamicin Continue IV ceftriaxone urine culture pending IV Ceftriaxone Diarrhea - Check stool culture, c diff - NS at 80ml/hr x 1 L, - Unsure if this is infectious vs adverse effect from chemo? 07/31 resolved Multiple myeloma with multiple bone lesions on imaging - S/p bone marrow biopsy on 05/05/25 - Multiple lytic lesions - Current therapy: Jenna-VRD Cycle 1 started 06/15/25 (daratumumabm bortezomib, dexamethasone, lenalidomide) - Cycle 3 to be administered on Friday 08/03 - she is supposed to take dexamethasone as directed 3 days prior to chemotherapy, which would start Sunday. Day team to reach out to heme/onc regarding if pt to have cycle 3 on schedule or if this will be postponed. - Prophylaxis includes allopurinol, acyclovir - S/p stabilization of the right femur due to a pathological fracture ( 05/13/25) as well as a prophylactic stabilization of her left femur ( 05/19/25) for impending pathological fracture by Dr. Etienne in April and May 2025 at [facility]. 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 Kathi Mao, will consult their team to continue while she is in the hospital. 07/30 continue Radiation therapy Stable descending aortic dissection -CT abd pelvis 07/29/25- reviewed personally --The descending aortic dissection continues just beyond the hiatus, stable. No evidence of abdominal aortic injury. This has been present since at least Sep 2024. DM II - ISS with accuchecks achs, Trulicyocasta weekly - A1C with am labs CKD stage IIIb -follow am labs, Cr./BUN 1.41/47, will give NS 80 ml/hr x 1 bag for hydration as she appears dry Other chronic medical conditions: Anxiety Depression Panic Attacks - Stable, continue home medications including citalopram daily DVT ppx: teds, scds, eliquis 5 mg BID Lines: PIV x 1 FEN/GI: heart healthy CODE: DNR/DNI-discussed with the patient, her 2 sisters and son who are present at bedside. They have not met with palliative care provider previously, have not truly discussed goals of care, encouraged them to do so whenever Marika is more oriented. Would highly consider involving palliative care during hospital stay. Dispo: admit to med/surg lives at home with family anticipate discharge to home tomorrow plan of care discussed with patient and sisters Rhianna and Carolin in detail and at length all questions answered they are understanding, agreeable, comfortable with the plan of care Admission and Anticipated Discharge Date Admission Date: July 29, 2025 Results & Data Results & Data Vital Signs (Past 12 Hours) Vital Signs Temp Pulse Resp BP Pulse Ox O2 Del Method 08/01/25 08:35 36.7 C 74 18 115/71 95 Room Air (1) Multiple myeloma Multiple myeloma remission status: not in remission Qualified Code(s): C90.00 - Multiple myeloma not having achieved remission (5) UTI (urinary tract infection) Hematuria presence: without hematuria Urinary tract infection type: acute cystitis Qualified Code(s): N30.00 - Acute cystitis without hematuria (6) Fall Encounter type: initial encounter Qualified Code(s): W19.XXXA - Unspecified fall, initial encounter (8) T12 compression fracture Encounter type: initial encounter Qualified Code(s): S22.080A - Wedge compression fracture of T11-T12 vertebra, initial encounter for closed fracture
--- NOTE | 2025-08-01 16:55 | Discharge Summary ---
Discharge Summary Date of Service August 01, 2025 Principal Dx & Hospital Course #1 = Principal Diagnosis (1) Multiple myeloma: (2) At high risk of tumor lysis syndrome: (3) Diabetes: (4) Hypertension: (5) UTI (urinary tract infection): (6) Fall: (7) Fracture of right fifth rib: (8) T12 compression fracture: Plan per admitting service notes with addendum: Fall Fracture of the right fifth rib T12 compression fracture - admit to [facility] - pain control, lidocaine patch, oxycodone 5 mg Q4-6H prn already rx as outpatient, may need to increase here, Dilaudid IV as needed for severe/breakthrough pain, incentive spirometry, flutter to prevent pneumonia , CXR is possible for such however the pt does not have any respiratory symptoms. Unlikely that this is truely a pna, however ceftriaxone would also cover this - PT/OT consults - Consult ortho spine to eval the T12 fracture 07/30 pain well controlled add Tylenol 1g q12h, decrease Oxycodone- reserve only for severe pain Incentive Spirometry Ortho Spine: T12 fracture is chronic 07/31 Pain well-controlled Bilateral pneumonia improving with ceftriaxone and doxycycline Continue for now Speech therapy evaluation to rule out aspiration component UTI - UA appears grossly infected, Follow Ucx, started ceftriaxone, continue - Monitor confusion, aspiration precautions 07/31 Urine culture: Positive for E. coli, Resistant to ampicillin, Bactrim, tobramycin and gentamicin Continue IV ceftriaxone urine culture pending IV Ceftriaxone Diarrhea - Check stool culture, c diff - NS at 80ml/hr x 1 L, - Unsure if this is infectious vs adverse effect from chemo? 07/31 resolved Multiple myeloma with multiple bone lesions on imaging - S/p bone marrow biopsy on 05/05/25 - Multiple lytic lesions - Current therapy: Jenna-VRD Cycle 1 started 06/15/25 (daratumumabm bortezomib, dexamethasone, lenalidomide) - Cycle 3 to be administered on Friday 08/03 - she is supposed to take dexamethasone as directed 3 days prior to chemotherapy, which would start Sunday. Day team to reach out to heme/onc regarding if pt to have cycle 3 on [facility] or if this will be postponed. - Prophylaxis includes allopurinol, acyclovir - S/p stabilization of the right femur due to a pathological fracture ( 05/13/25) as well as a prophylactic stabilization of her left femur ( 05/19/25) for impending pathological fracture by Dr. Etienne in April and May 2025 at [facility]. 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 Kathi Mao, will consult their team to continue while she is in the hospital. 07/30 continue Radiation therapy Stable descending aortic dissection -CT abd pelvis 07/29/25- reviewed personally --The descending aortic dissection continues just beyond the hiatus, stable. No evidence of abdominal aortic injury. This has been present since at least Sep 2024. DM II - ISS with Hailey jonas weekly - A1C with am labs CKD stage IIIb -follow am labs, Cr./BUN 1.4147, will give NS 80 ml/hr x 1 bag for hydration as she appears dry Other chronic medical conditions: Anxiety Depression Panic Attacks - Stable, continue home medications including citalopram daily DVT ppx: teds, scds, eliquis 5 mg BID Lines: PIV x 1 FEN/GI: heart healthy CODE: DNR/DNI-discussed with the patient, her 2 sisters and son who are present at bedside. They have not met with palliative care provider previously, have not truly discussed goals of care, encouraged them to do so whenever Marika is more oriented. Would highly consider involving palliative care during hospital stay. Dispo: admit to med/surg lives at home with family anticipate discharge to home tomorrow plan of care discussed with patient and sisters Lv in detail and at length all questions answered they are understanding, agreeable, comfortable with the plan of care Admission HPI Per Admitting Provider This is a 74 yo F with PMHx of multiple myeloma diagnosed April 2025, underwent stabilization of the right femur due to a pathological fracture as well as a prophylactic stabilization of her left femur for impending pathological fracture by Dr. Etienne in April and May 2025 at [facility]. She has started Jenna-VRD chemotherapy under the supervision of Dr. Tolliver with hematology oncology at the cancer center. Dr. Etienne has recommended postoperative radiation which she is currently undergoing since 07/15/2025. Other past medical history includes DM type II, CKD stage IIIb, venous insufficiency, HTN, HLD, gout, depression, history of panic attacks, claustrophobia, and anxiety. Pt is able to tell me that she was attempting to back up with her walker to sit down on the side of her bed however missed, and fell down onto the ground. Denies any head trauma. Sister x 2 and son are present at bedside and supports the history. Her other sister reports she has developing bruising over her right arm/elbow. The patient is confused and hard of hearing, she is unable to answer the date, year, president and calls this location [place]. She reports having right sided rib pain, worsens as she flinches with pain whenever she attempts to turn over in bed for me to examine her back. Denies any shortness of breath, cough, or other chest pain. Sisters report 6 days of diarrhea, and that they were supposed to collect a stool sample for culture however were unable to do so because of it being so watery. Denies changes in po intake or significant weight loss since initiation of chemotherapy. Marika uses a walker at all times. Does not require any supplemental O2. Imaging reveals a new acute right sided 5th rib fracture, T12 acute vs subacute compression fracture, UTI with grossly positive UA, and possible pna as seen on CXR. Pt was started on Ceftriaxone in the ER. Updated Medication List Medication Instructions Recorded Confirmed Type amlodipine 10 mg tablet 10 mg PO QAM 05/08/23 07/29/25 History atorvastatin 80 mg tablet 80 mg PO QAM 05/08/23 07/29/25 History dulaglutide 3 mg/0.5 mL 3 mg subcut WK 05/08/23 07/29/25 History subcutaneous pen injector (Trulicity) fenofibrate micronized 67 mg 67 mg PO QAM 05/08/23 07/29/25 History capsule lisinopril 2.5 mg tablet 2.5 mg PO QAM 05/08/23 07/29/25 History apixaban 5 mg tablet (Eliquis) 5 mg PO BID 05/04/25 07/29/25 History allopurinol 300 mg tablet 300 mg PO QAM #30 tabs 05/07/25 07/29/25 Rx cyanocobalamin (vitamin B-12) 500 500 mcg PO DAILY #30 tabs 05/07/25 07/29/25 Rx mcg tablet citalopram 40 mg tablet 40 mg PO QAM 07/08/25 07/29/25 History linaclotide 290 mcg capsule 290 mcg PO DAILY 07/08/25 07/29/25 History (Linzess) oxycodone 5 mg tablet 5 mg PO .Q4-6HR PRN bone pain 07/08/25 07/29/25 History lorazepam 1 mg tablet 1 mg PO DAILY #10 tabs 07/23/25 07/29/25 Rx acyclovir 400 mg tablet 400 mg PO BID 07/29/25 07/29/25 History calcium carbonate 500 mg PO BID 07/29/25 07/29/25 History dexamethasone 4 mg tablet 20 mg PO DIRECTED 07/29/25 07/29/25 History lenalidomide 25 mg capsule 25 mg PO DIRECTED 07/29/25 07/29/25 History lorazepam 1 mg tablet 1 mg PO DIRECTED PRN PRIOR TO 07/29/25 07/29/25 History RADIATION RX ondansetron 8 mg disintegrating 8 mg translingual Q8H PRN 07/29/25 07/29/25 History tablet NAUSEA/VOMITING prochlorperazine maleate 10 mg 10 mg PO Q6H PRN NAUSEA/VOMITING 07/29/25 07/29/25 History tablet acetaminophen 500 mg tablet 1,000 mg (2 x 500 mg) PO Q12H PRN 08/01/25 Rx (Tylenol Extra Strength) moderate to severe pain 7 days #14 tabs cefuroxime axetil 500 mg tablet 500 mg PO BID 5 days #10 tabs 08/01/25 Rx doxycycline hyclate 100 mg capsule 100 mg PO BID #9 caps 08/01/25 Rx miconazole nitrate 2 % vaginal 1 appful vaginal HS PRN vaginal 08/01/25 Rx cream (Monistat 7) yeast infection 7 days #45 grams Hospital Stay Data Consultations 07/29/25 16:16 ED Decision to Admit Stat 07/29/25 17:40 Consult Orthopedic Spine Surgery Routine Consult Radiation Oncology Stat Diagnostic Imagining Performed 07/29/25 14:15 CT lumbar spine w con Stat CT thoracic spine w con Stat 07/29/25 14:16 CT abd pelvis IV con only Stat CT cervical spine wo con Stat CT chest diagnostic w con Stat CT head/brain wo con Stat Pending Results Patient Have Any Pending Studies at Discharge: No Discharge Instructions Given to Patient (Per Discharging Provider) PLEASE REFER TO YOUR NEW MEDICATION LIST AND FOLLOW INSTRUCTIONS CAREFULLY. YOUR NEW MEDICATIONS INCLUDE: Cefuroxime, Doxycycline- antibiotics for pneumonia Please take a probiotic daily for at least 2-4 weeks to prevent diarrhea. [employer] brand recommended. You may use Monistat cream as needed for vaginal yeast infection associated with antibiotic intake. You can use Tylenol 1 g every 12 hours for increasing pain. Always use incentive spirometry every 2-4 hours to prevent lung collapse from rib fracture. Drink plenty of water. PLEASE CALL YOUR PRIMARY CARE PHYSICIAN OR RETURN TO THE ER IF WITH WORSENING OF SYMPTOMS, INCLUDING Shortness of breath, cough, fevers or chills, weakness, confusion, chest pain, etc. FOLLOW UP WITH PRIMARY CARE PHYSICIAN in 1 week. [facility] will be calling you soon for the appointment schedule.
== END 2025-08-01 13:55 | disposition home or self-care (01) | DRG 840 ==
LOC: ED 13:58 → SUATTDRO 16:52 → 3E 16:52